=== PATIENT | female | born 1970 | race Caucasian/White ===

== ENCOUNTER → 2021-03-26 | Outpatient (CLI) | payer OTHER ==
[~2021-03-26] MED LIST: ZOFRAN4 MG PO
== END ==
LOC: EXRD 08:46 → HEART 5 09:00 → EXRD 09:00
DX: R55 Syncope and collapse (principal)
CPT/HCPCS: 93880

== ENCOUNTER 2021-10-02 16:28 | Emergency (ER) | payer OTHER ==
[2021-10-02 18:22] LABS: HEMOGLOBIN 14.3 gm/dl (12.3-15.3); RED BLOOD COUNT 4.5 M/UL (4.00-5.10); WHITE BLOOD COUNT 15.6 K/UL (4.5-11.0)
[2021-10-02 19:00] LABS: BUN/CREATININE RATIO 24 (0-10)
[2021-10-02] MEDS ORDERED: PREDNISONE50 MG PO (22:37)
== END 2021-10-02 22:50 | disposition home or self-care (01) ==
LOC: ER1 16:28
PROVIDERS: Nurse Practitioner
DX: J02.9 Acute pharyngitis, unspecified (principal); J04.0 Acute laryngitis; R06.00 Dyspnea, unspecified; Z20.822 Contact with and (suspected) exposure to COVID-19; E11.9 Type 2 diabetes mellitus without complications; I10 Essential (primary) hypertension; Z79.82 Long term (current) use of aspirin; Z90.49 Acquired absence of other specified parts of digestive tract; Z90.710 Acquired absence of both cervix and uterus
CPT/HCPCS: 71045; 80053; 81001; 82550; 82553; 83874; 84484; 85025; 87081; 87880; 93005; 96374; 99285; J2930; U0002